=== PATIENT | female | born 1995 | race Native Hawaiian/Other Pacific Islander ===

== ENCOUNTER 2019-03-02 16:00 | Outpatient (CLI) | payer SELFPAY ==
[2019-03-02 21:45] LABS: CANDIDA GROUP DNA POSITIVE (NEGATIVE); CANDIDA KRUSEI DNA NEGATIVE (NEGATIVE); TRICHOMONAS VAGINALIS DNA NEGATIVE (NEGATIVE)
[2019-03-02 22:25] LABS: TRICHOMONAS VAGINALIS DNA NEGATIVE (NEGATIVE)
== END 2019-03-02 23:59 | disposition home or self-care (01) ==
LOC: LAB.R 16:00
PROVIDERS: ATTEND Physician Assistant Medical
DX: N76.0 Acute vaginitis (principal)
CPT/HCPCS: 87491; 87591; 87661; 87801

== ENCOUNTER 2020-02-13 08:00 | Outpatient (CLI) | payer SELFPAY | END 2020-02-13 23:59 | disposition home or self-care (01) | LOC: LAB 08:00 | PROVIDERS: ATTEND Family Medicine | DX: Z11.59 Encounter for screening for other viral diseases (principal) | CPT/HCPCS: 81599 ==